=== PATIENT | male | born 1995 | race Caucasian/White ===

== ENCOUNTER 2018-03-04 03:16 | Emergency (ER) | payer OTHER ==
[~2018-03-04] VITALS: Ht 190.5 cm; Wt 90.0 kg
[2018-03-04 04:41] LABS: ANION GAP 13 mmol/L (5-15); CALCIUM 9.3 mg/dL (8.5-10.1); CHLORIDE 108 mmol/L (98-107)
[2018-03-04 04:46] LABS: CREATINE KINASE, TOTAL 385 U/L (39-308); CREATININE 1.32 mg/dL (0.7-1.3)
[2018-03-04 06:04] LABS: AMPHETAMINE SCREEN, URINE Negative (Negative); BARBITURATE SCREEN, URINE Negative (Negative); BENZODIAZEPINE SCREEN, URINE Positive (Negative); CANNABINOID SCREEN, URINE Positive (Negative); COCAINE SCREEN, URINE Negative (Negative); METHADONE SCREEN, URINE Negative (Negative); OPIATE SCREEN, URINE Negative (Negative)
[2018-03-04 06:35] VITALS: BP 131/95
== END 2018-03-04 06:56 | disposition home or self-care (01) ==
LOC: ED 06:50
DX: F15.121 Other stimulant abuse with intoxication delirium (principal)
CPT/HCPCS: 36415; 80048; 80307; 82550; 99284

== ENCOUNTER 2018-03-05 22:23 | Emergency (ER) | payer OTHER ==
[~2018-03-05] VITALS: Ht 190.5 cm; Wt 86.4 kg
[2018-03-05 22:26] VITALS: BP 123/82
[2018-03-05] MEDS ORDERED: OXYcodone/APAP 5/325MG TABLET ONE (22:54)
[2018-03-05] MEDS ORDERED: OXYcodone/APAP 5/325MG TABLET PO ONE (23:00)
== END 2018-03-06 00:15 | disposition home or self-care (01) ==
LOC: ED 23:30
DX: S63.521A Sprain of radiocarpal joint of right wrist, initial encounter (principal); S40.211A Abrasion of right shoulder, initial encounter; S40.212A Abrasion of left shoulder, initial encounter; Z91.040 Latex allergy status; W22.8XXA Striking against or struck by other objects, initial encounter; Y93.89 Activity, other specified; Y99.8 Other external cause status; Y92.149 Unspecified place in prison as the place of occurrence of the external cause
CPT/HCPCS: 93005; 99284